=== PATIENT | female | born 1950 | race Caucasian/White ===

== ENCOUNTER 2021-03-31 04:26 | Inpatient (IN) | payer OTHER ==
[~2021-03-31] VITALS: Ht 172.7 cm; Wt 76.7 kg
[2021-03-31 06:48] VITALS: BP 110/62
[2021-03-31 11:57] VITALS: BP 106/50
[2021-03-31 15:29] VITALS: BP 107/55
--- NOTE | 2021-03-31 18:01 | NUR ---
PT ADMITTED [facility] FOR COVID PNEUMONIA, PT IS ON O2 4-5 L/MIN/NC TODAY, PT HAD FEVER THIS MONRING, PT STARTS TREAT COVID MEDICATIONS, PT'S SOB AND COUGHING HAVE IMPROVED, PT CAN GET UP TO BSC WITHOUT ASSIST, PT DENIES PAIN AND N/V BY THIS TIME.
[2021-03-31 19:33] VITALS: BP 138/56
--- NOTE | 2021-03-31 22:50 | NUR ---
PT RESING IN BED, SOA WITH TALKING. O2 PER NC. IVF INTACT. LUNGS CRACKLES. PALE SKIN TONE. PT DISCUSSED BEING AT HOME WITH COVID ON IVERMECTIN AND THEN TO [facility] PRIOR TO TRANSFER TO [facility]. PT UNSURE IF SHE HAS RECEIVED REMDESIVIR IN THE PAST. INDEP WITH TRANSFER TO [facility]. PT CALLS FOR ASSIST.
[2021-04-01 03:17] VITALS: BP 120/65
[2021-04-01 05:14] LABS: HEMATOCRIT 39.9 % (37.0-47.0); HEMOGLOBIN 13.3 gm/dL (12.0-15.0); MCH 32.7 pg (26.0-34.0); MCHC 33.4 g/dL (28.0-37.0); MCV 98.1 fL (80.0-100.0); PLATELET COUNT 206 thou/uL (150-400); RBC 4.06 mil/uL (4.20-5.00); WBC 21.3 thou/uL (4.0-11.0)
[2021-04-01 05:44] LABS: INR 1.1; PROTIME 11.9 Seconds (10.5-12.1)
[2021-04-01 06:25] LABS: ALBUMIN 2.5 g/dL (3.4-5.0); CALCIUM 8.8 mg/dL (8.5-10.1); CREATININE 0.9 mg/dL (0.6-1.0); MAGNESIUM 2.3 mg/dL (1.8-2.4); POTASSIUM 4.5 mmol/L (3.5-5.1); TOTAL BILIRUBIN 0.6 mg/dL (0.2-1.0)
[2021-04-01 06:41] LABS: DIRECT BILIRUBIN 0.2 mg/dL (<0.1-0.2); PHOSPHORUS 4.3 mg/dL (2.5-4.9)
[2021-04-01 07:40] VITALS: BP 147/72
[2021-04-01 11:25] VITALS: BP 138/61
[2021-04-01 13:26] LABS: ABSOLUTE NEUTROPHILS 7.9 thou/uL (1.4-8.2); ATYPICAL LYMPHS 7 %
--- NOTE | 2021-04-01 14:04 | NUR ---
INITIAL ASSESSMENT: SW reviewed chart and spoke with nursing and attending physician. Pt was transferred to [facility] from [facility] due to COVID. Pt placed in Enhanced Isolation. Pt has not received a COVID vaccination. Pt is afebrile and on 6L of O2. Pt is on IV abx, IV steroids and IV lasix. Pt is completing course of Remdesivir. SW spoke with pt via phone. Introduced role of SW. Pt is alert/orientated x 4. Pt reports she lives alone at home in [place], [place]. Prior to admission, pt was independent with ADLs. No use of DME for ambulation. Pt has home O2 in place that was set up for her at [facility]. Pt is unsure name of provider. No hx of HH services or post-acute placement. Pt's PCP is Dr. Dixon West in [place]. Plan is for pt to discharge home when medically stable. SW is following to assist as needed with discharge planning.
[2021-04-01 15:42] VITALS: BP 114/60
--- NOTE | 2021-04-01 18:40 | NUR ---
RN ASSUMED PT'S CARE AT 0700AM, PT IS A&OX4, PT IS CONTINUING IV ABX AND TREAT COVID MEDICATIONS, PT STILL HAS SOB WITH ACTIVIES, PT NEEDS MORE O2 SINCE AFTERNOON, PT IS ON OPTIFLOW O2 50L/MIN AND 100%, PT'S O2SAT STAYS AT 90-92%, PT'S VS ARE STABLE, RN HAS CALLED HOSPITAL DR TO REPORT PT NEEDS MORE O2, NEW ORDER , 40MG IV ONE TIME( DONE), KEEP NPO , CHEST X-Y HAS ORDER TODAY, RN HAS CALLED PT'S DAUGHTER TO UPDATE PT'S INFORMATION. RN WILL REPORT TO NEXT SHIFT TO KEEP EYE ON PT.
[2021-04-01 20:20] VITALS: BP 127/72
[2021-04-01 23:51] VITALS: BP 118/76
[2021-04-02 04:00] VITALS: BP 120/63
--- NOTE | 2021-04-02 04:18 | NUR ---
Patient not making progress towards outcome goals. Requires 50L/100% oxygen per optiflow to maintain sat 95% and above. Short of breath with activity but not in distress. Repeat CXR worse, started on Actemra with pre medication. Denies pain. Blood pressures and rhythm stable. Temp 99. Some diuresis from Lasix. Authorized contact updated to Cynthia/daughter and Lien/sister with patient's verbal permission.
[2021-04-02 06:44] LABS: HEMATOCRIT 43.6 % (37.0-47.0); HEMOGLOBIN 14.7 gm/dL (12.0-15.0); MCH 32.8 pg (26.0-34.0); MCHC 33.8 g/dL (28.0-37.0); MCV 97.1 fL (80.0-100.0); PLATELET COUNT 230 thou/uL (150-400); RBC 4.49 mil/uL (4.20-5.00); RDW 12.8 % (10.5-14.5); WBC 27.9 thou/uL (4.0-11.0)
[2021-04-02 06:59] LABS: D-DIMER 0.53 ug/mLFEU (0.19-0.50)
[2021-04-02 07:08] LABS: ALBUMIN 2.8 g/dL (3.4-5.0); CALCIUM 8.8 mg/dL (8.5-10.1); CREATININE 1.1 mg/dL (0.6-1.0); DIRECT BILIRUBIN 0.1 mg/dL (<0.1-0.2); PHOSPHORUS 3.9 mg/dL (2.5-4.9); POTASSIUM 3.7 mmol/L (3.5-5.1); TOTAL BILIRUBIN 0.7 mg/dL (0.2-1.0); TOTAL PROTEIN 6.9 g/dL (6.4-8.2)
[2021-04-02 07:52] VITALS: BP 121/66
[2021-04-02 09:38] LABS: ABSOLUTE NEUTROPHILS 12.3 thou/uL (1.4-8.2)
[2021-04-02 12:00] VITALS: BP 123/57
--- NOTE | 2021-04-02 15:29 | NUR ---
CHARLES reviewed chart and spoke with nursing and attending physician. Pt remains in Enhanced Isolation due to COVID. Pt is afebrile and on 6L of O2. Pt is on IV abx, IV steroids and IV lasix. Pt is completing course of Remdesivir. No weekend discharge planned. CHARLES placed call to pt's room. No answer. Need to clarify with pt the name of her home O2 provider. Pt states it was set up for her in [place], [place]. CHARLES discussed with [facility] liaison. Pt has not been billed yet for home O2, so it may be a new home O2 set up. Plan is for pt to discharge home when medically stable. CHARLES is following to assist as needed with discharge planning.
[2021-04-02 16:10] VITALS: BP 122/68
--- NOTE | 2021-04-02 17:49 | NUR ---
RN ASSUMED PT'S CARE AT 0700AM, PT IS A&OX4, PT IS CONTINUING IV ABX AND COVID MEDICATIONS, PT'S SOB HAS IMPROVED, PT IS ON HIGH FLOW ( OPTIFLOW ) O2 50L, 75-85%, O2SAT STAYS AT 92-96%, PT STARTS HER DIET, PT CAN USE BSC WITHOUT ASSIST, WE CONTINUE TO MONITOR PT.
[2021-04-02 18:06] LABS: HIV ANTIBODY Non Reactive (Non Reactive)
[2021-04-02 20:28] VITALS: BP 121/73
[2021-04-02 23:41] VITALS: BP 134/73
[2021-04-03 04:15] VITALS: BP 135/64
--- NOTE | 2021-04-03 04:28 | NUR ---
PROGRESS PT A/O X4. UP AD VONNIE TO BSC. ON OPTIFLOW AT 50L AND 87% FIO2 SATS STAYING IN THE MID 90'S BUT DOES DROP TO TO HIGH 80'S WITH ACTIVITY. IV TO LF FLUSHES WITHOUT DIFFICULTY. ROCEPHIN AND REMDESIVIR INFUSED ORDERED. RT TX'S CONTINUE. TELEMETRY INTACT READING SR/SA WITH RATES IN THE 70'S. LUNGS SOUNDS COARSE AND DIMINISHED SOME WHEEZING NOTED AT START OF SHIFT BUT RESOLVED WITH RT TX. CONTINUE POC.
[2021-04-03 06:25] LABS: HEMATOCRIT 42.7 % (37.0-47.0); HEMOGLOBIN 14.1 gm/dL (12.0-15.0); MCH 31.9 pg (26.0-34.0); MCHC 32.9 g/dL (28.0-37.0); MCV 96.8 fL (80.0-100.0); RBC 4.41 mil/uL (4.20-5.00); RDW 12.6 % (10.5-14.5); WBC 24.4 thou/uL (4.0-11.0)
[2021-04-03 06:44] LABS: ALBUMIN 2.6 g/dL (3.4-5.0); CALCIUM 8.6 mg/dL (8.5-10.1); CREATININE 0.8 mg/dL (0.6-1.0); DIRECT BILIRUBIN 0.1 mg/dL (<0.1-0.2); PHOSPHORUS 3.4 mg/dL (2.5-4.9); POTASSIUM 3.4 mmol/L (3.5-5.1); TOTAL BILIRUBIN 0.5 mg/dL (0.2-1.0); TOTAL PROTEIN 6.2 g/dL (6.4-8.2)
[2021-04-03 07:22] VITALS: BP 126/59
[2021-04-03 11:22] VITALS: BP 120/62
[2021-04-03 14:25] LABS: ABSOLUTE NEUTROPHILS 5.6 thou/uL (1.4-8.2)
[2021-04-03 14:27] LABS: ATYPICAL LYMPHS 5 %
[2021-04-03 14:29] LABS: PLATELET COUNT 247 thou/uL (150-400)
[2021-04-03 15:32] VITALS: BP 152/70
--- NOTE | 2021-04-03 17:45 | NUR ---
PT ALERT AND ORIENTED X 4. PT ON OPTIFLOW 55 L WITH 85% FI02. PT DESATS WITH ACTIVITY. PT UP TO CHAIR MOST OF DAY. PT INDEPENDANT TO BSC. SKIN INTACT. DIMINISHED UPPER LOBES WITH COARSE CRACKLES IN LOWER LOBES. PT ON STRICT 1500 ML FLUID RESTRICTION. PT DENIES PAIN AND NEEDS AT THIS TIME. WILL CONTINUE TO MONITOR.
[2021-04-03 20:01] VITALS: BP 127/73
[2021-04-04 03:19] VITALS: BP 145/69
--- NOTE | 2021-04-04 04:54 | NUR ---
PROGRESS PT A/O X4, UP AD VONNIE TO BSC. ON OPTIFLOW AT 55 LITERS AND 87% FIO2. LUNGS COARSE AND DIMINISHED PT HAS A NON PRODUCTIVE COUGH. WAS UP IN CHAIR AT START OF SHIFT AND HAD SPENT THE DAY IN CHAIR. DENIES PAIN, TELEMETRY INTACT READING SA WITH RATES IN THE 60'S TO 70'S. VOIDING QS CONTINUE POC.
[2021-04-04 05:56] LABS: ALBUMIN 2.8 g/dL (3.4-5.0); CALCIUM 8.7 mg/dL (8.5-10.1); CREATININE 1.1 mg/dL (0.6-1.0); PHOSPHORUS 3.7 mg/dL (2.5-4.9)
[2021-04-04 11:08] VITALS: BP 125/98
[2021-04-04 17:06] VITALS: BP 125/72
--- NOTE | 2021-04-04 19:55 | NUR ---
RN ASSUMED PT'S CARE AT 0700-1900PM, PT IS A7OX4, PT IS ON OPTIFLOW O2 55L, 80% , PT'S O2SAT STAY AT 92-96 %, PT'S VS ARE STABLE, PT STILL HAS SOB WITH ACTIVITIES, PT'S VS ARE STABLE AT DAY SHIFT.
[2021-04-04 20:05] VITALS: BP 145/75
[2021-04-04 23:06] LABS: IgA 73 mg/dL (87-352); IgG 508 mg/dL (586-1602); IgM 67 mg/dL (26-217)
[2021-04-05 04:39] VITALS: BP 135/48
[2021-04-05 05:57] LABS: ALBUMIN 2.8 g/dL (3.4-5.0); CALCIUM 8.5 mg/dL (8.5-10.1); PHOSPHORUS 2.6 mg/dL (2.5-4.9); POTASSIUM 4.5 mmol/L (3.5-5.1)
--- NOTE | 2021-04-05 07:18 | NUR ---
PROGRESS PT A/O X4, UP AD VONNIE. ON OPTIFLOW AT 55L/80% FIO2. LUNG SOUNDS IMPROVING BUT STILL DESATTING WITH ACTIVITY ALTHOUGH RECOVERY IS QUICKER NOW. ENCOURAGE PT TO INCREASE ACTIVITY TOLERATED SAT UP IN CHAIR MOST OF DAY INTO THE EVENING HOURS.
[2021-04-05 07:19] VITALS: BP 135/69
[2021-04-05 11:01] VITALS: BP 140/71
--- NOTE | 2021-04-05 12:58 | NUR ---
Case discussed with the care team. Still on optiflow. Dc timeframe uncertain. Pt still in ISO. Pt has home o2 in place from recent discharge from [facility]. Will follow.
[2021-04-05 15:07] VITALS: BP 118/71
--- NOTE | 2021-04-05 19:43 | NUR ---
RN ASSUMED PT'S CARE AT 0700-1900PM, PT IS A&OX4, PT IS ON OPTIFLOW O2 50-55L/MIN/ 75-80%, PT'S O2SAT STAY AT 92-98%, PT'S SOB ( WITH ACTIVITIES ) HAS IMPROVED, PT HAS STARTED SECOND TIME IV REMDESVIR TO TREAT COVID TODAY, PT DENIES PAIN AND N/V BY THIS TIME.
[2021-04-05 20:18] VITALS: BP 109/43
--- NOTE | 2021-04-05 21:57 | NUR ---
PT ALERT AND ORIENTED X4. VSS. AFEBRILE. LS DIMINISHED. SOA SLIGHTLY WHEN GETTING BACK TO BED FROM THE CHAIR. COUGH MEDICINE GIVEN SCHEDULED. INSTRUCTED PT TO CALL NS FOR ASSISTANCE GETTING OOB. HER GAIT IS SLIGHTLY WEAK AND UNSTEADY.
[2021-04-06 04:26] VITALS: BP 113/54
[2021-04-06 04:34] VITALS: BP 127/59
[2021-04-06 05:23] LABS: ABSOLUTE NEUTROPHILS 3.8 thou/uL (1.4-8.2); BASOPHILS 0.3 % (0.0-2.0); EOSINOPHILS 1.7 % (0.0-3.0); HEMATOCRIT 39.8 % (37.0-47.0); HEMOGLOBIN 13.3 gm/dL (12.0-15.0); LYMPHOCYTES 75.2 % (24.0-44.0); MCH 32.6 pg (26.0-34.0); MCHC 33.4 g/dL (28.0-37.0); MCV 97.4 fL (80.0-100.0); MONOCYTES 0.4 % (1.0-8.0); PLATELET COUNT 216 thou/uL (150-400); POLYS 22.4 % (36.0-66.0); RBC 4.08 mil/uL (4.20-5.00); RDW 12.2 % (10.5-14.5); WBC 16.8 thou/uL (4.0-11.0)
[2021-04-06 05:50] LABS: ALBUMIN 2.7 g/dL (3.4-5.0); CALCIUM 8.1 mg/dL (8.5-10.1); CREATININE 0.7 mg/dL (0.6-1.0); DIRECT BILIRUBIN 0.2 mg/dL (<0.1-0.2); PHOSPHORUS 2.8 mg/dL (2.5-4.9); POTASSIUM 3.9 mmol/L (3.5-5.1); TOTAL BILIRUBIN 0.7 mg/dL (0.2-1.0); TOTAL PROTEIN 5.3 g/dL (6.4-8.2)
--- NOTE | 2021-04-06 07:26 | NUR ---
PT PROGRESSING TOWARDS D/C GOALS. WBC IS IMPROVING. VSS AFEBRILE SATS WNL ALL NIGHT.
[2021-04-06 08:18] VITALS: BP 123/63
--- NOTE | 2021-04-06 09:06 | NUR ---
Assess for length of stay. Admit with COVID pneumonia/sepsis. On Optiflow. Initial loss taste, smell which has returned. Large wt variations over 6 days ranging 169-190 lb-would not suspect 21 lb loss. Pt did not answer phone when called. Intake records reviewed, intially poor, but gradually showing improvement 50-80%. Will add ensure supplement 1x day until eating >75%. Has vitamin pack ordered for covid protocol. Low nutrition risk with appropriate nutrition interventions in place.
[2021-04-06 11:16] LABS: T-SPOT.TB Negative
[2021-04-06 11:42] VITALS: BP 108/58
[2021-04-06 15:48] VITALS: BP 103/51
--- NOTE | 2021-04-06 18:01 | NUR ---
RN ASSUMED PT'S CARE AT 0700AM, PT IS A&OX4, PT STILL IS ON OPTIFLOW O2 55L/MIN. 80%, PT'S O2SAT STAYS AT 93-98%, BUT PT IS SOB WITH ACTIVITIES, PT IS CONTINUING IV ABX AND TREAT COVID MEDICATIONS, PT DENIES PAIN AND N/V AT DAY SHIFT.
[2021-04-06 20:10] VITALS: BP 122/48
[2021-04-07 03:42] VITALS: BP 99/6
[2021-04-07 08:08] VITALS: BP 97/59
--- NOTE | 2021-04-07 08:08 | NUR ---
PROGRESS PT A/O X4 UP AD VONNIE LUNGS DIMINISHED OPTIFLOW AT 45L/63% FIO2. PT DENIES PAIN VSS, TELE READING SR/ST CONTINUE TO MONITOR AND WEAN O2 TOLERATED.
[2021-04-07 12:07] VITALS: BP 130/50
[2021-04-07 15:17] LABS: RDW 12.4 % (10.5-14.5)
[2021-04-07 15:19] LABS: HEMATOCRIT 36.7 % (37.0-47.0); HEMOGLOBIN 12.2 gm/dL (12.0-15.0); MCH 32.1 pg (26.0-34.0); MCHC 33.1 g/dL (28.0-37.0); MCV 96.9 fL (80.0-100.0); PLATELET COUNT 203 thou/uL (150-400); RBC 3.79 mil/uL (4.20-5.00); WBC 15.9 thou/uL (4.0-11.0)
[2021-04-07 15:37] LABS: ALBUMIN 2.6 g/dL (3.4-5.0); CALCIUM 7.8 mg/dL (8.5-10.1); CREATININE 0.9 mg/dL (0.6-1.0); DIRECT BILIRUBIN 0.1 mg/dL (<0.1-0.2); PHOSPHORUS 1.9 mg/dL (2.5-4.9); POTASSIUM 3.9 mmol/L (3.5-5.1); TOTAL BILIRUBIN 0.4 mg/dL (0.2-1.0); TOTAL PROTEIN 4.9 g/dL (6.4-8.2)
[2021-04-07 15:51] LABS: ABSOLUTE NEUTROPHILS 7.6 thou/uL (1.4-8.2)
[2021-04-07 16:40] VITALS: BP 115/65
--- NOTE | 2021-04-07 17:15 | NUR ---
Discussed with the care team, currently at 35 liters of O2 via high flow cannula. DC date still undetermined, combination therapy w/ remdesivir and corticosterios are recommended and to finish antibiotics. CM to follow for dc needs.
--- NOTE | 2021-04-07 19:22 | NUR ---
RN ASSUMED PT'S CARE AT 0700-1900PM, PT IS A&OX4, PT IS OFF OPTIFLOW AND PT IS ON O2 3-6L/MIN/NC , PT IS TOLERATED , BUT PT STILL HAS SOB WITH ACITIVIES, PT IS CONTINUING TREAT COVID MEDICATIONS, PT DENIES PAIN AT DAY SHIFT.
[2021-04-07 19:55] VITALS: BP 105/59
--- NOTE | 2021-04-07 22:57 | NUR ---
PROGRESS PT A/O X4, UP AD VONNIE. LUNGS DIMINISHED, OFF OPTIFLOW AND ON HIGH FLOW CANNULA AT 6 LITERS SATS AT 95 TO 96%, STILL DESATS QUICKLY INTO THE 70'S WITH ACTIVITY BUT REBOUNDING A LITTLE FASTER THAN BEFORE. PT ABLE TO AMBULATE AROUND ROOM AND MANAGE EQUIPMENT WITHOUT DIFFICULTY. STILL [address] IN [address], PT MONITORING INTAKE AND TOLERATING WITHOUT DIFFICULTY. LAST DOSE OF REMDESIVIR DUE IN AM AND PT HOPES TO CONTINUE TO WEAN O2 TOLERATED.
[2021-04-08 04:00] VITALS: BP 104/47
[2021-04-08 06:32] LABS: ALBUMIN 2.7 g/dL (3.4-5.0); CALCIUM 8.2 mg/dL (8.5-10.1); CREATININE 0.7 mg/dL (0.6-1.0); DIRECT BILIRUBIN 0.1 mg/dL (<0.1-0.2); PHOSPHORUS 3.3 mg/dL (2.5-4.9); POTASSIUM 4.7 mmol/L (3.5-5.1); TOTAL BILIRUBIN 0.6 mg/dL (0.2-1.0); TOTAL PROTEIN 5.1 g/dL (6.4-8.2)
[2021-04-08 07:39] VITALS: BP 126/59
[2021-04-08 11:21] VITALS: BP 100/79
--- NOTE | 2021-04-08 14:23 | NUR ---
SW reviewed chart and spoke with nursing and attending physician. Pt remains in Enhanced Isolation due to COVID. Pt is afebrile and is on 5-6L of O2 via nasal cannula. Pt is on IV steroids, IV lasix and Remdesivir. Therapy evals to be ordered when pt is able to participate. SW spoke with pt via phone. Pt states she is feeling better. SW discussed possible discharge needs: post-acute placement/HH services. Pt states she is open to either, but is hoping to be able to discharge home. Pt states that she has three dtr and a sister that are planning on staying with her when she gets home. Pt to ask her dtr to find out which home O2 company she uses. Pt states she only has portable O2 tanks and does not currently have a concentrator. CHARLES is following to assist as needed with discharge planning.
[2021-04-08 15:31] VITALS: BP 115/64
--- NOTE | 2021-04-08 16:06 | PATH ---
[facility] [place] [address] PATHOLOGY RPT PROCEDURE Name: MARJORIE LEWIS Elizabeth Room #: 356-P ADM IN M.R.#: [id number] Admission: 03/31/21 Date of : 54 Discharge: Report #: [id number] Path Case #: [id number] [facility] Accession Number: [id number] . 01 Material submitted: . body - PERIPHERAL BLOOD SENDOUT . 01 Clinical history: . COVID . 02 Diagnosis: Special studies report received from [facility], [address] [place] [address], [address], [place], [address], on case [id number], labeled with their number [id number], dated 04/06/2021. . Flow Cytometry: Hematologic Neoplasia Assessment . Clinical History . . Indication For Study Evaluation for leukemia and non-Hodgkin lymphoma . Specimen Peripheral Blood . Viability 85% (7AAD exclusion) . Interpretation Peripheral Blood: Abnormal CD5+ B-cell population (58% of leukocytes) with a B-cell chronic lymphocytic leukemia/small lymphocytic lymphoma (CLL/SLL) immunophenotype . Comments Correlation with available clinical, laboratory, and morphologic data is recommended. If needed, FISH testing (CLL panel) and ZAP-70 testing are available. . Populations Analyzed Myeloid Blasts: 0.0% No significant blast population detected Abnormal B-cells: 58% Scatter properties compatible with small to intermediate cell size, cells characterized as: CD45+, CD5+, CD10-, CD11b-, CD11c-, CD19+, CD20+ (dim), CD22+ (dim), CD23+, CD38-, FMC7-, HLA-DR+, sIg lambda+ (dim) Remaining 13% B-cells: 1%, polytypic/polyclonal sIg light chain [address] [address] PATHOLOGY RPT PROCEDURE Name: MARJORIE LEWIS Room #: 356-P ADM IN .R.#: [id number] Admission: 03/31/21 Date of : 54 Discharge: Report #: [id number] Path Case #: [id number] Lymphocytes: pattern T-cells: no significant abnormalities of the markers tested CD4+ T-cells: 2.7% (including 0.0% CD57+ cells) CD8+ T-cells: 0.4% (including 0.1% CD57+ cells) CD4:CD8: 6.3 NK cells: 0.1% Neutrophils: 36% No significant abnormalities of the markers tested Monocytes: 1% No significant abnormalities of the markers tested Eosinophils: 1% No relative increase . Morphologic Evaluation A slide was reviewed for quality eng purposes only. . Specimen Description Total Cell Yield: 15.12 X 10 and 6 . Reagent(s) Used CD2, CD3, CD4, CD5, CD7, CD8, CD10, CD11b, CD11c, CD13, CD14, CD16, CD19, CD20, CD22, CD23, CD33, CD34, CD38, CD45, CD56, CD57, CD64, CD117, FMC-7, HLA-DR, kappa, lambda . at [facility]. Jt Acosta MD Hematopathologist . Intended Use Flow cytometry is optimally used to immunophenotypically characterize abnormal populations when they are detected. Negative flow cytometry results do not exclude lymphoma or neoplasia. Possible false negative flow cytometry results may occur in, but are not limited to, the following: neoplastic cells in Hodgkin lymphoma are not typically adequately represented by routine clinical flow cytometry; neoplastic cells may be lost or inadequately represented due to degeneration, sample processing, sampling artifact, or patchy involvement; plasma cells are typically underrepresented by flow cytometry; immature cells/blasts may be underrepresented due to hemodilution; myeloproliferative disorders and low grade myelodysplasia may not have immunophenotypic abnormalities or increased blasts. Correlation with all available clinical, laboratory, and morphologic data is always necessary to assess for the possibility of false negative flow cytometry results and to establish a diagnosis. Each marker in this analysis was used to assess for potential antigenic abnormalities or to evaluate detected abnormalities. . Any image or images that accompany this report are investment representative images only and should not be used to render a diagnosis. . [address] [address] PATHOLOGY RPT PROCEDURE Name: MARJORIE LEWIS Room #: 356-P [facility] IN M.R.#: [id number] Admission: 03/31/21 Date of : 54 Discharge: Report #: [id number] Path Case #: [id number] Disclaimer(s) This test was developed and its performance characteristics determined by [employer]. It has not been cleared or approved by the Food and Drug Administration. . [facility] is a business unit of [facility] a wholly-owned subsidiary of [employer]. . This test was performed at [facility]. at [address], [place], [address] - Bakery Chef: Ananda Burch MD. . For inquiries, the physician may contact Lab: [phone] . A complete copy of the report is on file. . Professional services performed by [facility]. at [address], [place] [address]. Technical services performed by [facility]. at [address], [place] [address]. . (SCA:[facility] 04/07/2021) . [facility] 04/07/2021 [facility] . 02 Electronically signed: . Kumar Ralph DO, Pathologist NPI- [id number] . 02 Pathologist provided ICD-10: U07.1 . 02 CPT . 146431 Specimen Comment: A courtesy copy of this report has been sent to [phone] Specimen Comment: [phone], Specimen Comment: Report sent to , DR GUPTA / DR DUMONT Performed at: [address] [facility], [place], [place] [id number] MD Audi Fritz MD Phone: [phone] Performed at: [address] [facility] [place] [address], [place], [place] [id number] [place] [address] PATHOLOGY RPT PROCEDURE Name: MARJORIE LEWIS Room #: 356-P ADM IN M.R.#: [id number] Admission: 03/31/21 Date of : 54 Discharge: Report #: [id number] Path Case #: [id number] MD Renzo Noel MD Phone: [phone]
--- NOTE | 2021-04-08 17:30 | NUR ---
RN ASSUMED PT'S CARE AT 0700AM, PT IS A&OX4, PT IS ON O2 5L/MIN/NC, PT'S O2SAT KEEP AT 93-97%, PT STILL HAS SOB WITH ACTIVITIES, PT'S VS ARE STABLE, PT GETS UP TO CHAIR AND BSC WITHOUT ASSIST, PT'S COVID ISOLATION IS DC TODAY,
[2021-04-08 19:35] VITALS: BP 123/72
[2021-04-09 03:15] VITALS: BP 116/62
--- NOTE | 2021-04-09 05:00 | NUR ---
CARE ASSUMED AT 2300, PATIENT WASIN BED ASLEEP. ASSESSMENT DONE. PATIENT DENIED PAIN OR DISCOMFORT. PATIENT ON FLUID RESTRICTION. PATIENT IN BED ASLEEP AT THIS TIME BREATHING REGULAR AND UNLABOURED.
[2021-04-09 07:34] VITALS: BP 102/62
--- NOTE | 2021-04-09 13:37 | NUR ---
SW reviewed chart and spoke with nursing and attending physicain. Enhanced Isolation precautions have been discontinued. Pt is afebrile and on 5L of O2. Pt is on IV lasix and IV steroids. No weekend discharge planned. PT/OT evals ordered to assist with recommendation for discharge needs. SW spoke with pt via phone to provide update and discuss discharge plan. Pt is agreeable with plan. Pt's dtr to check home O2 equipment to find out name of home O2 provider. SW discussed possible need for HH when discharged. Pt is agreeable. No preference voiced of HH provider. CHARLES contacted [facility] liaison to see if they go to [place], [place]. Discharge home is anticipated for Monday, 04/12. CHARLES is following to assist as needed with discharge planning.
[2021-04-09 15:12] VITALS: BP 116/62
--- NOTE | 2021-04-09 16:08 | NUR ---
CARE ASSUMED THIS AM, PT WAS ON 5L OF OXYGEN, CURRENTLY ON 3L. SOB WITH EXERTION. NO SIGNS OF DISTRESS NOTED. PT DENIES ANY PAIN. CONTINUE TO HAVE A COUGH, COUGH MED GIVEN PER ORDER. UP TO BSC INDEPENDENTLY. PT DAUGHTER CAME TO VISIT AND HELPED PT WITH A BED BATH. PT IS PROGRESSING TOWARDS CARE, ANTICIPATING FOR D/C SOON.
[2021-04-09 19:08] VITALS: BP 109/64
[2021-04-10 04:11] VITALS: BP 102/64
--- NOTE | 2021-04-10 06:16 | NUR ---
PROGRESS PT A/O X4 UP AD VONNIE, ON 3 LITERS O2 VIA NC. STILL DESATS WITH ACTIVITY BUT REBOUNDING A LITTLE FASTER THAN PREVIOUS SHIFT. DENIES PAIN SLEPT ALL SHIFT CONTINUE POC.
[2021-04-10 07:09] VITALS: BP 128/58
[2021-04-10 10:47] LABS: HEMATOCRIT 40.3 % (37.0-47.0); HEMOGLOBIN 13.1 gm/dL (12.0-15.0); MCH 31.9 pg (26.0-34.0); MCHC 32.6 g/dL (28.0-37.0); RBC 4.11 mil/uL (4.20-5.00); RDW 12.5 % (10.5-14.5); WBC 22.7 thou/uL (4.0-11.0)
[2021-04-10 10:53] LABS: CALCIUM 8.5 mg/dL (8.5-10.1); POTASSIUM 3.8 mmol/L (3.5-5.1)
[2021-04-10 11:24] VITALS: BP 108/63
--- NOTE | 2021-04-10 13:24 | NUR ---
OTL HAS PUT RECOMMENDATIONS FOR D/C HOME (OT HOME HEALTH ONLY) IN THE OT VARIANCE SECTION. PT HAS BEEN UP AD VONNIE IN ROOM USING TOILET, SPONGE BATH ING, ALL ELSE WITH NO ISSUES ON 2l OXYGEN. AN EVAL OF HER ADL'S WAS NOT NEEDED PER PT AND OTL, BUT JUST OF HER HOME NEEDS. REFER TO OT VARIANCE FOR MORE INFO
[2021-04-10 15:23] VITALS: BP 111/58
[2021-04-10 20:05] VITALS: BP 118/63
[2021-04-11 04:31] VITALS: BP 97/48
[2021-04-11 04:43] LABS: HEMATOCRIT 35.9 % (37.0-47.0); HEMOGLOBIN 12.1 gm/dL (12.0-15.0); MCH 33.2 pg (26.0-34.0); MCHC 33.5 g/dL (28.0-37.0); PLATELET COUNT 170 thou/uL (150-400); RBC 3.63 mil/uL (4.20-5.00); RDW 12.3 % (10.5-14.5); WBC 19.9 thou/uL (4.0-11.0)
[2021-04-11 07:35] VITALS: BP 116/57
[2021-04-11 08:13] LABS: ABSOLUTE NEUTROPHILS 4.8 thou/uL (1.4-8.2); ATYPICAL LYMPHS 2 %; PLATELET ESTIMATE NORMAL
[2021-04-11 11:31] VITALS: BP 102/52
[2021-04-11 16:04] VITALS: BP 93/52
[2021-04-11 19:57] VITALS: BP 97/53
--- NOTE | 2021-04-11 20:10 | NUR ---
RN ASSUMED PT'S CARE AT 0700-1900PM, PT IS A&OX4, PT IS OFF O2 TODAY, PT HAS SOME SOB WITH ACTIVITIES, PT DENIES PAIN AT DAY SHIFT, PT MAY DC TO HOME TOMORROW.
[2021-04-12 04:35] VITALS: BP 100/63
--- NOTE | 2021-04-12 06:20 | NUR ---
PT MAKING PROGRESS TOWARDS GOALS. ON ROOM AIR THROUGHOUT THE NIGHT. NO SOA REPORTED. O2 SAT 92-94 % OVERNIGHT. PT AWOKE AND STATED THAT SHE HOPES TO GO HOME TODAY.
[2021-04-12 07:29] VITALS: BP 116/62
[2021-04-12 11:11] VITALS: BP 92/53
--- NOTE | 2021-04-12 11:52 | NUR ---
DISCHARGE NOTE: CHARLES reviewed chart and spoke with nursing and attending physician. Pt is medically stable for discharge home today. Rest/exercise oximetry completed. Pt does not need additional home O2 or require O2. Pt has home O2 in place at home, that was set up at [facility]. Pt does not need HH per therapy. SW spoke with pt via phone to discuss discharge plan. Pt states that her sister, who is an RN and her three dtrs will be taking turns staying with her. Pt denies having any discharge needs. Pt's family to provide transportation home. CHARLES updated nursing and attending physician. SW is available to assist should needs arise.
--- NOTE | 2021-04-12 12:25 | NUR ---
ORDERS RECEIVED FOR PT EVAL AND TREAT. Pt FROM HOME W/ RAMP TO ENTER. NO AD FOR GAIT AND INDEP W/ ADLs. HAD HOME O2 SET UP RECENTLY BUT IS CURRENTLY ON RA AND SATS 91%, HR 105. Pt REPORTED SHE HAS BEEN OFF O2 SINCE LAST NIGHT AND HAS BEEN GETTING UP AD VONNIE IN ROOM W/O DIFFICULTIES. HAS OCCASIONAL L FINGERS TINGLING 'WHEN I WALK A LOT.' Pt DECLINED PT NEEDS AT THIS TIME. WILL HAVE HER 3 DTRS AND SISTER TO HELP HER WHEN SHE DISCHARGES. IF Pt'S STATUS CHANGES, PT CAN RETURN FOR FORMAL EVALUATION. ANTICIPATE NO THERAPY NEEDS FOR D/C.
[2021-04-12 12:53] VITALS: BP 92/53
[2021-04-12] MEDS ORDERED: COLACE 100 MG100 MG PO ×2 (13:03→16:42)
[2021-04-12] MEDS ORDERED: VITAMIN D325 MC2 PO ×2 (13:03→16:42)
[2021-04-12] MEDS ORDERED: VENTOLIN HFA INH8 GM INH ×2 (13:03→16:42)
[2021-04-12] MEDS ORDERED: ACEROLA C500 MG PO ×2 (13:03→16:42)
[2021-04-12] MEDS ORDERED: ZINC SULFATE50 MG PO ×2 (13:03→16:42)
[2021-04-12] MEDS ORDERED: PROTONIX40 M2 PO ×2 (13:03→16:42)
[2021-04-12] MEDS ORDERED: VALTREX 500 MG500 MG PO ×3 (13:03→16:42)
[2021-04-12] MEDS ORDERED: ASA81BEC PO ×2 (13:57→16:42)
--- NOTE | 2021-04-12 16:23 | NUR ---
RN RESSUMED PT'S CARE AT 0700-1600PM, PT IS A&OX4, PT'S SOB AND COUGHING HAVE IMPROVED, PT IS OFF O2 AND SHE IS ON ROOM AIR SINCE YESTODAY, PT DENIES PAIN AND SOB, RN RECEIVED ORDER TO DC PT TO HOME, PT AND PT'S DAUGHTER UNDERSTAND DC TEACHING WELL, PT'S DAUGHTER CONSUMER BANKER PT AT 1600PM, PT IS HAPPY WITH HER CARE AT 3 W.
--- NOTE | 2021-04-13 07:05 | HC ---
[facility] [place] [address] CONSULTATION Name: MARJORIE LEWIS Room #: 356-P [facility] IN .R.#: [id number] Admission: 03/31/21 Attend Phys: Harshal Yuan MD Discharge: 04/12/21 Date of : 54 Report #: [id number] THIS REPORT FOR: cc: FARHAD DUMONT DO Physician not on staff Breezy Arriaga MD ~ cc: Sarmad Swanson MD, Kofi Capellan MD, Farhad Arroyo REQUESTING PHYSICIAN: Harshal Yuan. REASON FOR CONSULTATION: Lymphocytosis. HISTORY OF PRESENT ILLNESS: The patient is a 71-year-old female, who was transferred to this hospital from [facility] for COVID pneumonia, needing higher level of care. She reports awareness that her PCP had mentioned her lymphocytes were high several years ago and was checking it twice a year. Here, Dr. Capellan had discussed with it and also had arranged flow cytometry, which does show a monoclonal B cell population consistent with CLL. We note that at this time, her neutrophils, hemoglobin and platelets are well maintained. On her exam, she does not have any lymph nodes. 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 I told her that at this time, I do not see an indication for therapy and she may not for a large number of years or ever. We talked about indications of therapy being decreasing ___ blood counts, unexplained adenopathy, unexplained fevers, chills or sweats. She appears to understand this reasonably well. We also discussed that she could either follow up with myself in [place] to discuss as an outpatient or she can follow up with Dr. Arroyo or he could probably find someone closer to where she lives near [place]. We will be available if they would like her to see us. PAST MEDICAL HISTORY: Notable for the recent COVID pneumonia and otherwise fairly unremarkable. SOCIAL HISTORY: She is a never smoker. 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 She is unvaccinated, but is very willing to get the vaccine going forward. PHYSICAL EXAMINATION: MOOD: Pleasant. NEUROLOGIC: Speech and thought pattern are normal. She is moving extremities appropriately. NECK: No enlarged lymph nodes in the supraclavicular, cervical, axillary [facility] [address] [place] [address] CONSULTATION Name: LEWISMARJORIE J Room #: 356-P DIS IN M.R.#: [id number] Admission: 03/31/21 Attend Phys: Harshal Yuan MD Discharge: 04/12/21 Date of : 54 Report #: [id number] region. ABDOMEN: Without masses. She does have some very minimal slight discomfort in the right lower quadrant, just above the inguinal fold, but it is lower abdomen/pelvis. No rebound. EXTREMITIES: No arm or leg swelling. Skin rashes noted. GENERAL: The patient appears her stated age. VITAL SIGNS: Her height is 5 feet 8 inches, weight is 169 pounds, blood pressure is 116/62, O2 sat 96%, respirations 16, pulse 87, afebrile at 98.0. LABORATORY DATA: Here was notable for creatinine of 1.0, total bilirubin normal. White count 19.9. Recent hemoglobin 12.1, MCV 99.0, platelets 170. She had 69% lymphocytes and earlier on had some atypical lymphocytes as mentioned by the flow cytometry was consistent with CLL. Her IgG level slightly low at 508. She checked HIV, negative. She has not had any complex cross-sectional imaging. MEDICATIONS: At this time in the hospital currently include bisacodyl p.r.n., docusate 100 b.i.d., furosemide 40 daily, hydrocodone p.r.n., valacyclovir 1000 daily, pantoprazole 40 daily, zinc sulfate 220 daily, vitamin D 4000 units daily, ascorbic acid 500 b.i.d., Lovenox 80 b.i.d., albuterol 2 puffs respiratory therapy q. 4, Tylenol p.r.n., MiraLax p.r.n. ASSESSMENT AND PLAN: 1. CLL by flow cytometry and consistent with other lab work. Discussed with the patient. No indication for therapy. She could followup for surveillance with myself or Dr. Arroyo or physician closer to her home. I expect her to do well. 2. Resolving COVID pneumonia with SARS and respiratory failure, really improved. 3. Transaminase elevation. We will need followup in several weeks. 4. GI and DVT prophylaxis, has been on Protonix and Lovenox. Follow up as above. <ELECTRONICALLY SIGNED> By: Breezy Arriaga MD 04/13/21 0705 0730 07 Breezy Arriaga MD /nt
== END 2021-04-12 16:00 | disposition home or self-care (01) | DRG 871 ==
LOC: 3W 04:26
PROVIDERS: Hospitalist; Nurse Practitioner; Specialist; ADMIT Hospitalist; ATTEND Hospitalist
DX: A41.9 Sepsis, unspecified organism (principal); J96.01 Acute respiratory failure with hypoxia; J12.82 Pneumonia due to coronavirus disease 2019; U07.1 COVID-19; E46 Unspecified protein-calorie malnutrition; C91.10 Chronic lymphocytic leukemia of B-cell type not having achieved remission; R74.01 Elevation of levels of liver transaminase levels; Z88.2 Allergy status to sulfonamides; Z90.710 Acquired absence of both cervix and uterus; Z68.25 Body mass index [BMI] 25.0-25.9, adult; Z23 Encounter for immunization
CPT/HCPCS: 10879

== ENCOUNTER 2021-04-13 15:29 | Inpatient (IN) | payer OTHER ==
[~2021-04-13] VITALS: Ht 172.7 cm; Wt 94.5 kg
[~2021-04-13 15:29] MED LIST: ACEROLA C500 MG PO; ASA81BEC PO; COLACE 100 MG100 MG PO; PROTONIX40 M2 PO; VALTREX 500 MG500 MG PO; VENTOLIN HFA INH8 GM INH; VITAMIN D325 MC2 PO; ZINC SULFATE50 MG PO
[2021-04-13 15:40] VITALS: BP 91/66
--- NOTE | 2021-04-13 16:04 | EKG ---
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 : 1950 Requested By: Jorje Zarate Order Number: [id number] MD: Dax Lynn Measurements Intervals Babb Rate: 129 P: -1 MO: 124 QRS: -1 QRSD: 77 T: 93 QT: 293 QTc: 430 Interpretive Statements Sinus tachycardia Abnormal R-wave progression, early transition Borderline repolarization abnormality Baseline wander in lead(s) V1 No previous ECG available for comparison Electronically Signed On 04-13-2021 16:04:05 CDT by Dax Lynn [email or web address] <ELECTRONICALLY SIGNED> By: Dax Lynn MD, [facility] 04/13/21 1604 1541 1541 Dax Lynn MD, FACC /EPI
[2021-04-13 17:19] LABS: RBC 2.57 mil/uL (4.20-5.00)
[2021-04-13 17:21] LABS: HEMATOCRIT 25.8 % (37.0-47.0); MCHC 31.9 g/dL (28.0-37.0); MCV 100.5 fL (80.0-100.0); PLATELET COUNT 214 thou/uL (150-400); RDW 12.6 % (10.5-14.5)
[2021-04-13 17:22] LABS: HEMOGLOBIN 8.2 gm/dL (12.0-15.0)
[2021-04-13 17:23] LABS: WBC 54.7 thou/uL (4.0-11.0)
[2021-04-13 17:31] LABS: CREATININE 1.6 mg/dL (0.6-1.0); POTASSIUM 4.7 mmol/L (3.5-5.1)
[2021-04-13 17:35] LABS: INR 1.04; PROTIME 11.3 Seconds (10.5-12.1)
[2021-04-13 17:37] LABS: APTT 20.5 Seconds (24.5-32.8)
[2021-04-13 17:41] LABS: ALBUMIN 2.3 g/dL (3.4-5.0); TOTAL BILIRUBIN 0.5 mg/dL (0.2-1.0); TOTAL PROTEIN 4.2 g/dL (6.4-8.2)
[2021-04-13 17:58] LABS: METAMYELOCYTES 1 %
[2021-04-13 17:59] LABS: ABSOLUTE NEUTROPHILS 25.2 thou/uL (1.4-8.2)
--- NOTE | 2021-04-13 18:15 | NUR ---
[phone]
[2021-04-13 19:40] VITALS: BP 116/59
[2021-04-13 20:34] VITALS: BP 116/59
[2021-04-13 20:57] VITALS: BP 141/119
[2021-04-13 21:38] LABS: RDW 12.7 % (10.5-14.5)
[2021-04-13 21:40] LABS: HEMATOCRIT 25.4 % (37.0-47.0); MCH 31.8 pg (26.0-34.0); MCHC 31.6 g/dL (28.0-37.0); MCV 100.7 fL (80.0-100.0); RBC 2.52 mil/uL (4.20-5.00)
[2021-04-13 21:43] LABS: WBC 60.2 thou/uL (4.0-11.0)
[2021-04-13 23:44] VITALS: BP 126/69
[2021-04-14 04:59] VITALS: BP 139/76
--- NOTE | 2021-04-14 06:13 | NUR ---
RECEIVED REPORT FROM ER NURSE. PT ARRIVED TO FLOOR FROM ER AROUND 2044. ADMISSION HX AND ASSESSMENT COMPLETED CHARTED. PT WAS RECENTLY ADMITTED FOR COVID AND DISCHARGED HOME EARLIER THIS WEEK. SHE DENIES ANY PAIN. SHE STATES SHE FEELS DIZZY WHEN OUT OF BED, BUT DENIES ANY DIZZINESS WHILE LAYING DOWN. VSS. AFEBRILE. IVF INFUSING ORDERED. LACTATE TRENDING DOWN. HEPARIN GTT INFUSING PER PE/DVT PROTOCOL; TITRATED DRIP BASED ON APTT RESULTS. NO S/S BLEEDING NOTED. PT HAS BEEN SLEEPING MOST OF THE NIGHT. RESPIRATIONS EVEN AND UNLABORED. WILL GIVE REPORT TO ONCOMING NURSE.
--- NOTE | 2021-04-14 07:27 | NUR ---
THEODORE OSORIO CALLED UNIT FOR UPDATE. UPDATE PROVIDED AND SHE WAS GIVEN PT'S PRIVACY CODE.
[2021-04-14 07:59] LABS: BE(vivo) 1.4 mmol/L (-2 to +3); HCO3 24.2 mmol/L (22.0-26.0); PCO2 30.8 mmHg (35.0-45.0); PO2 93.4 mmHg (80.0-100.0); pH 7.514 (7.360-7.450); sO2 97.8 % (92.0-98.0)
[2021-04-14 08:01] VITALS: BP 132/68
[2021-04-14 08:07] LABS: HEMATOCRIT 21.7 % (37.0-47.0); HEMOGLOBIN 6.8 gm/dL (12.0-15.0); MCH 31.3 pg (26.0-34.0); MCHC 31.1 g/dL (28.0-37.0); MCV 100.6 fL (80.0-100.0); PLATELET COUNT 247 thou/uL (150-400); RBC 2.16 mil/uL (4.20-5.00); RDW 12.5 % (10.5-14.5)
[2021-04-14 08:30] LABS: ANION GAP < 0 mmol/L (7-16); BUN 37 mg/dL (7-18); CALCIUM 7.6 mg/dL (8.5-10.1); CHLORIDE 103 mmol/L (98-107); CO2 34 mmol/L (21-32); CREATININE 0.8 mg/dL (0.6-1.0); GLUCOSE 143 mg/dL (74-106); POTASSIUM 4.2 mmol/L (3.5-5.1); SODIUM 135 mmol/L (136-145)
[2021-04-14 09:16] LABS: WBC 61.7 thou/uL (4.0-11.0)
--- NOTE | 2021-04-14 09:49 | NUR ---
S.C. CONSULT #[id number] WAS COMPLETED BY THIS RETAIL ASSISTANT STORE MANAGER ON THIS DATE. VERY NICE LADY WITH STRONG FAMILY SUPPORT CLOSE. 2, EIGHT YEAR OLD GRANDCHILDREN RIDE THEIR BICYCLES TO HER HOUSE.
[2021-04-14 10:51] LABS: OBSERVED RETIC COUNT 3.83 % (0.6-2.6)
[2021-04-14 11:38] LABS: FOLIC ACID 20.3 ng/mL (8.6-58.9)
[2021-04-14 13:32] LABS: % SATURATION 95 % (20-39); IRON 228 ug/dL (50-170); TIBC 241 ug/dL (250-450)
[2021-04-14 14:26] LABS: ABSOLUTE NEUTROPHILS 22.8 thou/uL (1.4-8.2); ATYPICAL LYMPHS 1 %
[2021-04-14 14:32] LABS: HYPOCHROMASIA 2+
[2021-04-14 14:39] VITALS: BP 136/42; BP 136/74
--- NOTE | 2021-04-14 18:19 | NUR ---
PT BECAME COOL AND CLAMMY THIS MORNING. ELEVATED HR AND RESPIRATIONS. DR. WILSON NOTIFIED RECEIVED ORDERS FOR ANTIBIOTICS, CT SCAN, ULTRASOUND AND 1 UNIT OF BLOOD FOR HGB OF 6.8. HR CAME DOWN TO 115. SEE ULTRASOUND AND CT SCAN REPORT. HEPARIN WAS DC'ED BY PHYSICIAN.
[2021-04-14 19:32] VITALS: BP 132/76
[2021-04-14 21:47] LABS: HEMATOCRIT 30.7 % (37.0-47.0)
[2021-04-14 21:49] LABS: HEMOGLOBIN 9.6 gm/dL (12.0-15.0)
[2021-04-15] VITALS (7 sets, daily range): BP systolic 120–144; BP diastolic 46–69
[2021-04-15 06:19] LABS: HEMATOCRIT 20.3 % (37.0-47.0)
[2021-04-15 06:31] LABS: HEMOGLOBIN 6.7 gm/dL (12.0-15.0)
--- NOTE | 2021-04-15 14:21 | 2DMMODE ---
[facility] [place] [address] 2 D/M-MODE ECHOCARDIOGRAM Name: MARJORIE LEWIS Elizabeth Room #: 217-P ADM IN M.R.#: [id number] Admission: 04/13/21 Attend Phys: Yves Polo MD Discharge: Date of : 54 Report #: [id number] THIS REPORT FOR: cc: Dixon West MD, Russell Richard MD Park, Jin S. MD ~ APPROVED REPORT Study performed: 04/15/2021 13:50:08 EXAM: Comprehensive 2D, Doppler, and color-flow Echocardiogram Patient Location: Bedside Room #: 217 Status: routine BSA: 1.75 HR: 99 bpm BP: 136/50 mmHg Rhythm: Sinus Tach Other Information Study Quality: Adequate Indications Tachycardia. SOB. Covid 03/2021. 2D Dimensions IVSd: 11.10 (7-11mm) LVOT Diam: 19.88 (18-24mm) LVDd: 36.71 mm PWd: 8.68 (7-11mm) LVDs: 27.28 (25-40mm) Left Atrium: 27.67 (27-40mm) Aortic Root: 31.38 mm Volumes Left Atrial Volume (Systole) Single Plane 4CH: 18.31 mL Single Plane 2CH: 19.74 mL LA ESV Index: 12.00 mL/m2 Aortic Valve AoV Peak Nick.: 1.22 m/s AO Peak Gr.: 5.97 mmHg LVOT Max P.49 mmHg LVOT Max V: 1.17 m/s MONIKA Vmax: 2.97 cm2 [facility] [address] [place] [address] 2 D/M-MODE ECHOCARDIOGRAM Name: MARJORIE LEWIS Room #: 217-P [facility] IN [place].#: [id number] Admission: 04/13/21 Attend Phys: Yves Polo MD Discharge: Date of : 54 Report #: [id number] Mitral Valve E/A Ratio: 0.6 MV Decel. Time: 193.20 ms MV E Max Nick.: 0.59 m/s MV A Nick.: 1.04 m/s MV PHT: 56.03 ms IVRT: 69.20 ms Pulmonary Valve PV Peak Nick.: 1.56 m/s PV Peak Gr.: 9.74 mmHg Tricuspid Valve TR Peak Nick.: 2.79 m/s RAP Estimate: 5.00 mmHg TR Peak Gr.: 31.08 mmHg PA Pressure: 36.00 mmHg Left Ventricle The left ventricle is normal size. There is normal LV segmental wall motion. There is normal left ventricular wall thickness. Left ventricular systolic function is normal. LVEF is 60%. Mild diastolic dysfunction is present (impaired relaxation pattern). Right Ventricle The right ventricle is normal size. The right ventricular systolic function is normal. Atria The left atrium size is normal. The right atrium size is normal. Aortic Valve The aortic valve is normal in structure. No aortic regurgitation is present. There is no aortic valvular stenosis. Mitral Valve The mitral valve is normal in structure. There is no mitral valve regurgitation noted. No evidence of mitral valve stenosis. Tricuspid Valve The tricuspid valve is normal in structure. Trace tricuspid regurgitation. Estimated PAP is 36mmHg. Pulmonic Valve The pulmonary valve is normal in structure. Trace pulmonic regurgitation. [place] [address] 2 D/M-MODE ECHOCARDIOGRAM Name: LEWISMARJORIE J Room #: 217-P ADM IN M.R.#: [id number] Admission: 04/13/21 Attend Phys: Yves Polo MD Discharge: Date of : 54 Report #: [id number] Great Vessels The aortic root is normal in size. Ascending aorta is not well visualized. IVC is not well visualized. Pericardium There is no pericardial effusion. <Conclusion> The left ventricle is normal size. There is normal left ventricular wall thickness. Left ventricular systolic function is normal. Mild diastolic dysfunction is present (impaired relaxation pattern). The right ventricle is normal size. The left atrium size is normal. The aortic valve is normal in structure. There is no mitral valve regurgitation noted. Trace tricuspid regurgitation. Estimated PAP is 36mmHg. <ELECTRONICALLY SIGNED> By: Shiv Ignacio MD 04/15/21 1421 20 20 Shiv Ignacio MD /INF
[2021-04-15 17:06] LABS: HEMATOCRIT 25.3 % (37.0-47.0); HEMOGLOBIN 8.1 gm/dL (12.0-15.0); MCH 30.4 pg (26.0-34.0); RBC 2.66 mil/uL (4.20-5.00); RDW 14.6 % (10.5-14.5)
[2021-04-15 17:12] LABS: MCV 95.2 fL (80.0-100.0); WBC 57.7 thou/uL (4.0-11.0)
[2021-04-15 17:19] LABS: D-DIMER 0.61 ug/mLFEU (0.19-0.50); INR 0.94; PROTIME 10.3 Seconds (10.5-12.1)
[2021-04-15 17:30] LABS: APTT 21.8 Seconds (24.5-32.8)
--- NOTE | 2021-04-15 17:30 | NUR ---
Case opened to follow for dc planning needs. Pt known to cm from recent admission with covid pneumonia and dc on 04/12/21 to home with outpt f/u. The pt was able to go home with no o2 needs and family taking turns staying with her. Pt's sister Magali and several dtrs are supportive and involved. The pt normally lives alone in her own home in [place], [place]. She originally was at [facility] with covid and was dc'd to home with portable o2;however she quickly readmitted here and never rec'd her o2 concentrator. The pt is being treated for a PE with heprin gtt. She is on iv atb and is being seen by GI for anemia and noted to have hx of CLL. Therapy evals are in progress along with 5N acute rehab consult. DC timeframe and needs are uncertain at this time. Will follow along with her progress for possible hh/dme/snf/rehab referrals.
[2021-04-16 03:38] LABS: HEMATOCRIT 30.4 % (37.0-47.0); HEMOGLOBIN 9.4 gm/dL (12.0-15.0)
[2021-04-16 05:57] VITALS: BP 140/58
[2021-04-16 08:30] VITALS: BP 134/52
[2021-04-16 12:08] VITALS: BP 128/60
--- NOTE | 2021-04-16 14:40 | NUR ---
No weekend dc anticipated. Pt had IR procedure for GI bleed. Therapy evals in progress. Will montior over the weekend to see if hh/rehab or dme referrals needed next week.
[2021-04-16 16:31] VITALS: BP 130/48
--- NOTE | 2021-04-16 17:24 | NUR ---
PATIENT HAD PRODUCTIVE DAY. SHE WALKED IN THE ROOM WITH PT/OT. REQUIRED 2L NC WITH ACTIVITY/WALKING FOR SOA, O2 SATS BEING IN LOW 90S. SHE WAS UP IN RECLINER FOR ALL MEALS. A/O X4, VITAL SIGNS STABLE. ENCOURAGED PO INTAKE HER URINE WAS DARK IN COLOR. NO COMPLAINTS.
[2021-04-16 18:52] LABS: HEMATOCRIT 24.3 % (37.0-47.0); HEMOGLOBIN 7.9 gm/dL (12.0-15.0); MCH 30.7 pg (26.0-34.0); MCHC 32.7 g/dL (28.0-37.0); MCV 93.7 fL (80.0-100.0); RBC 2.59 mil/uL (4.20-5.00); RDW 16.1 % (10.5-14.5)
[2021-04-16 19:00] LABS: WBC 35.6 thou/uL (4.0-11.0)
[2021-04-16 19:39] VITALS: BP 146/53
[2021-04-17 05:45] VITALS: BP 147/67
[2021-04-17 08:00] VITALS: BP 151/78
--- NOTE | 2021-04-17 08:01 | NUR ---
SLEPT PART OF SHIFT. N/V MOST OF SHIFT. NO NAUSEA THIS AM, ABDOMON SOFT AND ROUND BUT MORE FIRM. BOWEL SOUNDS HYPOACTIVE. SPOKE WITH SISTER LAST NOC FOR 15 MINUTES. DENIES COMPLAINTS OF PAIN. ASSIST UP NEEDED. CONTINUE TO ASSES.
[2021-04-17 11:53] VITALS: BP 132/66; BP 154/75
[2021-04-17 12:00] VITALS: BP 133/71
--- NOTE | 2021-04-17 12:48 | NUR ---
DISCUSSED WITH DR. GARAY PATIENT'S EPISODES OF N/V OVERNIGHT, NO PASSING GAS, NO BM. REQUESTED NEED FOR KUB TO EVALUATE. DIET CHANGED TO NPO. KUB ORDERED AND SHOWED FRANCI. DR. GARAY NOTIFIED. GI MD (DR. PONCE) PAGED FOR INPUT ON TREATMENT PLAN. HE EVALUATED PATIENT AT BEDSIDE. ORDERS TO KEEP NPO EXCEPT FOR SIPS OF WATER AND ICE CHIPS, TO REPEAT KUB TOMORROW MORNING. NO NEED TO PLACE NG TUBE UNLESS PATIENT DEVELOPES NAUSEA/VOMITING. DISCUSSED WITH DR. GARAY REGARDING DROP IN HGB (9.4 TO 7.9) THIS MORNING DURING ROUNDS. NO OBJECTIVE S/S BLEEDING, VSS. 1 U PRBCS ORDERED. TRANSFUSION OF 1 UNIT PRBCS INITIATED AT 1145, TOLERATED.
[2021-04-17 16:55] VITALS: BP 153/66
--- NOTE | 2021-04-17 17:50 | NUR ---
PATIENT TOLERATED WALKING IN THE ROOM TO THE DOOR AND BACK TO RECLINER/BED THREE TIMES TODAY. REQUIRED NO OXYGEN. PATIENT WAS COOPERATIVE TO SIT UP IN THE CHAIR THREE TIMES WELL TODAY TO INCREASE ACTIVITY, ASSIST WITH HEALING OF BOWEL OBSTRUCTION AND TO DECREASE SWELLING IN BLE. BLE APPEAR TO BE MORE SWOLLEN TODAY (1-2 +PITTING) THAN YESTERDAY'S ASSESSMENT (MILD, NON-PITTING). NO OTHER CHANGES IN BLE. ENOURAGED ACTIVITY, KEEPING BLE ELEVATED, PERFORM ACTIVE FOOT ROMS IN BED AND WILL PLAN TO RECONNECT SCDS WHILE RESTING IN BED.
[2021-04-17 19:19] VITALS: BP 126/53
[2021-04-18 04:20] VITALS: BP 128/65
[2021-04-18 07:50] VITALS: BP 136/54
--- NOTE | 2021-04-18 07:53 | NUR ---
SLEPT PART OF SHIFT. UP IN CHAIR FOR 2 HOURS LAST PM. LASIX GIVEN AND HAS HAD GOOD URINE OUTPUT. WORKING ON GOALS AND PLAN OF CARE FOR NOC. CONTINUE TO ASSES.
[2021-04-18 11:30] VITALS: BP 126/65
[2021-04-18 15:50] VITALS: BP 134/63
[2021-04-18 19:08] VITALS: BP 124/41
[2021-04-19 04:00] VITALS: BP 150/52
[2021-04-19 04:30] LABS: HEMOGLOBIN 9.4 gm/dL (12.0-15.0); MCHC 33.4 g/dL (28.0-37.0); MCV 92.9 fL (80.0-100.0); RBC 3.02 mil/uL (4.20-5.00); RDW 16.1 % (10.5-14.5); WBC 21.2 thou/uL (4.0-11.0)
[2021-04-19 04:45] LABS: CALCIUM 7.6 mg/dL (8.5-10.1); CREATININE 0.5 mg/dL (0.6-1.0); POTASSIUM 3.9 mmol/L (3.5-5.1)
--- NOTE | 2021-04-19 04:48 | NUR ---
SLEPT MOST OF SHIFT. PASSING GAS DURING DAY. RASH NOTED TO SIDES BILATERAL, AROUND NECK AND BACK LAST PM, UNRAISED. TAXI SERVICER HERE AT 2230 AND OBSERVED RASH. ORDERS RECIEVED. PATIENT STATES ITCHING IS BETTER AFTER CREAM APPLIED. WORKING ON GAOLS AND PLAN OF CARE FOR NOC. CONTINUE TO ASSES AND ENCOURAGE INCREASE ACTIVITY.
--- NOTE | 2021-04-19 06:36 | NUR ---
PASSING GAS THIS AM. NO COMPLAINTS OF NAUSEA
[2021-04-19 07:35] VITALS: BP 144/59
[2021-04-19 12:10] VITALS: BP 149/60
[2021-04-19 15:40] VITALS: BP 147/55
--- NOTE | 2021-04-19 16:05 | NUR ---
PER MD NOTES, PT MAY BE ABLE TO PROGRESS DIRECTLY HOME. BUSINESS MANAGEMENT MANAGER CONTINUES TO FOLLOW FOR REHAB NEEDS, BUT AT THIS TIME THE FOCUS IS ON HOME WITH HH SOON MEDICALLY CLEARED PER MD REPORT.
[2021-04-19 16:07] VITALS: BP 149/60
--- NOTE | 2021-04-19 17:19 | NUR ---
PATIENT HAD A PRODUCTIVE DAY. VITAL SIGNS STABLE. SHE AMBULATED IN THE ROOM 4+ TIMES TO THE BATHROOM INDEPENDENTLY WITH WALKER AND ONCE AROUND THE NURSE STATION. SHE TOLERATED ACTIVITY WELL. SHE HAD A MEDIUM, BROWN, SOFT, FORMED BOWEL MOVEMENT LATE THIS AFTERNOON AFTER BEING GIVEN SUPPOSITORY. STOOL SAMPLE SENT FOR FECAL OCCULT PER ORDER. PER GI OKAY TO ADVANCE DIET TO HH. PATIENT'S PO INTAKE IS MINIMAL, DENIES N/V, POOR APPETITE. ENSURE CLEAR ORDERED TO AID IN NUTRITIONAL INTAKE.
[2021-04-19 18:42] LABS: HEMATOCRIT 32.1 % (37.0-47.0); HEMOGLOBIN 10.6 gm/dL (12.0-15.0); MCH 31.1 pg (26.0-34.0); MCHC 33.1 g/dL (28.0-37.0); MCV 94.1 fL (80.0-100.0); RBC 3.41 mil/uL (4.20-5.00); RDW 15.8 % (10.5-14.5); WBC 28.8 thou/uL (4.0-11.0)
[2021-04-19 20:16] VITALS: BP 118/56
[2021-04-20 03:56] VITALS: BP 125/63
--- NOTE | 2021-04-20 05:27 | NUR ---
ALERT AND OREINTED X4. LUNGS ARE DIMINISHED ON ROOM AIR. UP TO BATHROOM WITH WALKER AND ASSSITANCE PER NURSING. STEADY ON HER FEET TO BATHROOM. CALLS APPROPRIATELY PER NURSING FOR ASSSITANCE. DENIES ANY PAIN WITH ASSESSMENT PER NURSING SLEEPING AT THIS TIME.
[2021-04-20 07:40] VITALS: BP 139/65
[2021-04-20 11:20] VITALS: BP 129/62
[2021-04-20 15:35] VITALS: BP 125/69
--- NOTE | 2021-04-20 16:02 | NUR ---
met with patient discussed dc planning. Discussed if need for post acute care. Patient reports she will have 24/7 care at home. She reports interest in home health. She has no preference for home health. Interest in a agency that services her area. Referral to [facility].
--- NOTE | 2021-04-20 17:08 | NUR ---
REPORT CALLED TO [facility].
--- NOTE | 2021-04-20 17:20 | NUR ---
[facility] accepting of patient. gave patient list of [email or web address] home health agencies that service her area. Updated referral to [facility].
[2021-04-20 17:52] VITALS: BP 117/53
--- NOTE | 2021-04-20 17:55 | NUR ---
pt A & O x4. pt is SBA with ADLS and cares. Pt vs stable. pt transferred from CCU. pt is able to make needs known
[2021-04-20 19:54] VITALS: BP 120/52
--- NOTE | 2021-04-21 04:24 | NUR ---
PT IS A/O X4 AND IS UP WITH ASSISTANCE X1. ROOM AIR. VSS. AFEBRILE. C/O NAUSEA. PRN ZOFRAN GIVEN. NO RELIEF STATED BY PT. NUTRITION THERAPIST NOTIFIED. ORDERS GIVEN. FALL PRECAUTIONS IN PLACE, CALL LIGHT IS WITHIN REACH.
[2021-04-21 04:34] VITALS: BP 151/77
[2021-04-21 06:22] LABS: HEMATOCRIT 32.8 % (37.0-47.0); HEMOGLOBIN 10.8 gm/dL (12.0-15.0); MCH 31.4 pg (26.0-34.0); MCV 95.2 fL (80.0-100.0); RBC 3.44 mil/uL (4.20-5.00); WBC 19.9 thou/uL (4.0-11.0)
[2021-04-21 11:46] VITALS: BP 150/75
--- NOTE | 2021-04-21 16:24 | NUR ---
CM MET WITH PT THIS DAY TO DISUSS DC PLANNING. PT INDICATED SHE WAS STILL VOMITING AND WASN'T FEELING WELL. NURSE WAS AWARE AND HAD NOTIFIED HOSPITALIST WHO HAD ORDERD KUB. PT INDICATED THAT SHE WANTED TO LOOK AT USING [facility] OUT OF [place]. CM CALLED OFFICE AND FAXED REFERRAL FOR REVIEW. CM FOLLOWING REGARDING DC PLANNING.
[2021-04-21 19:20] VITALS: BP 145/72
--- NOTE | 2021-04-21 19:39 | NUR ---
Assumed pt care this am vs stable though nausea and vomiting is noted. MD informed, DC put no hold x-ray ordered. POC followed, kept on clear liquids. Endorsed to the night nurse.
[2021-04-22 00:11] VITALS: BP 138/59
--- NOTE | 2021-04-22 00:55 | NUR ---
ASSESSED AT START OF SHIFT. PT STATED NAUSEA HAS SUBSIDED A LITTLE. STILL MAINTAINING CLR LIQUID AND ICE CHIPS. UP WITH SBA TO THE BATHROOM. FALL PREC IN PLACE. HYDROCORTISONE CREAM APPLIED TO BACK FOR SKIN RASH. WILL CONT WITH POC TILL EOS.
[2021-04-22 08:16] VITALS: BP 121/51
[2021-04-22 11:48] VITALS: BP 121/59
[2021-04-22 12:02] VITALS: BP 149/60
[2021-04-22 12:35] VITALS: BP 149/60
--- NOTE | 2021-04-22 13:43 | NUR ---
Pt dcing home today with orders for HH and home o2. KUB clear and pt feeling better. Pt will need home o2 again with RT indicating 4liters with activity. Spoke with pt at bedside and she indicates her dtr Cynthia or sister Caitlyn will have o2 info and believes the family may have returned her o2 to [facility] [phone] earlier today. Poker Room Manager confirmed with [facility] in [place] and they closed her home o2 case this morning. Bin the material control manager will reopen the case but needs new cms form and script signed by the attending as well as clinical. All documentation completed, signed by the attending and returned to Bin. Family and pt aware that family will need to stop back by their office to get a portable tank before coming to transport her home today as they will not come to the area for a portable drop off. Family agreeable and will coordinate directly with Bin. Hh orders faxed and confirmed with [facility] out of [place] and [facility] has canceled the referral. All parties updated. Pt to dc home later today with her dtr.
== END 2021-04-22 17:15 | disposition home health service (06) | DRG 871 ==
LOC: ER 15:29 → 2N 18:15 → EROBS 18:15 → 2N 20:37 → 4S 04-20 17:42
PROVIDERS: Emergency Medicine; Hospitalist; Internal Medicine; Internal Medicine Hematology & Oncology; Nuclear Medicine Nuclear Cardiology; Nurse Practitioner Family; ADMIT Internal Medicine; ATTEND Internal Medicine
PROC: 30233N1 Transfusion of Nonautologous Red Blood Cells into Peripheral Vein, Percutaneous Approach (ICD-10-PCS; principal; 2021-04-14)
PROC: 30233N1 Transfusion of Nonautologous Red Blood Cells into Peripheral Vein, Percutaneous Approach (ICD-10-PCS; 2021-04-15)
DX: A41.9 Sepsis, unspecified organism (principal); J18.9 Pneumonia, unspecified organism; J96.01 Acute respiratory failure with hypoxia; R65.21 Severe sepsis with septic shock; K66.1 Hemoperitoneum; D62 Acute posthemorrhagic anemia; C91.10 Chronic lymphocytic leukemia of B-cell type not having achieved remission; K56.609 Unspecified intestinal obstruction, unspecified as to partial versus complete obstruction; S36.62XA Contusion of rectum, initial encounter; N13.4 Hydroureter; K56.7 Ileus, unspecified; M79.81 Nontraumatic hematoma of soft tissue; Z20.822 Contact with and (suspected) exposure to COVID-19; R53.81 Other malaise; S30.0XXA Contusion of lower back and pelvis, initial encounter; S30.1XXA Contusion of abdominal wall, initial encounter; R26.89 Other abnormalities of gait and mobility; Z86.16 Personal history of COVID-19; Z90.710 Acquired absence of both cervix and uterus; Z88.2 Allergy status to sulfonamides; Z28.21 Immunization not carried out because of patient refusal; X58.XXXA Exposure to other specified factors, initial encounter; Y93.89 Activity, other specified; Y92.89 Other specified places as the place of occurrence of the external cause; Y99.8 Other external cause status
CPT/HCPCS: 10081; 10100